=== PATIENT | female | born 1990 | race African-American/Black ===

== ENCOUNTER 2020-11-18 01:20 | Inpatient (IN) | payer OTHER ==
[2020-11-18 03:04] LABS: BASO % 0.4 % (0-2.0); EOS % 0.1 % (0-4.5); HEMATOCRIT 43.5 % (32.4-45.2); LYMPH % 11.1 % (8-40); MCH 31.3 pg (25.7-33.7); MCHC 34.5 g/dl (32.0-36.0); MEAN CELL VOLUME 90.7 fl (80-96); MEAN PLT VOLUME 10.9 fl (7.5-11.1); MONO % 5.7 % (3.8-10.2); NEUT % 82.7 % (42.8-82.8); PLATELET COUNT 185 K/MM3 (134-434); RDW 13.2 % (11.6-15.6)
[2020-11-18 03:14] LABS: INR 0.85 (0.83-1.09); PROTHROMBIN TIME (PATIENT) 10.3 SEC (9.7-13.0)
[2020-11-18 03:17] VITALS: BMI 31.9
[2020-11-18 03:17] LABS: ACTIVATED PTT 26.1 SECONDS (25.2-36.5)
[2020-11-18] MEDS ORDERED: FENTANYL/BUPIVACAINE/NS/PF - PCEA - 50 ML DISP.SYRIN EP ONE (03:21)
[2020-11-18] MEDS ORDERED: PCA PUMP NR ONE (03:21)
[2020-11-18 03:23] LABS: BLOOD UREA NITROGEN 6.7 mg/dL (7-18); CALCIUM 9.1 mg/dL (8.5-10.1)
[2020-11-18 03:26] LABS: CREATININE 0.5 mg/dL (0.55-1.3)
[2020-11-18] MEDS ORDERED: NALOXONE HCL 0.4 MG/ML VIAL IVPUSH PRN (03:37)
[2020-11-18] MEDS ORDERED: BUPIVACAINE HCL/PF 0.25% (2.5MG/ML) 10 ML VIAL ONE (03:40)
[2020-11-18] MEDS ORDERED: FENTANYL/BUPIVACAINE/NS/PF - PCEA - 50 ML DISP.SYRIN EP SCH (03:45)
[2020-11-18] MEDS ORDERED: OXYTOCIN 30 UNITS in 0.9% NS 30 UNIT/500 ML INFUS.BAG IVPB SCH (04:00)
[2020-11-18] MEDS ORDERED: ELECTROLYTE-148 SOLN 1,000 ML IV SCH (04:00)
[2020-11-18] MEDS ORDERED: OXYTOCIN 30 UNITS in 0.9% NS 30 UNIT/500 ML INFUS.BAG IVPB ONE (04:57)
[2020-11-18] MEDS ORDERED: OXYTOCIN 20 UNITS in 0.9% NS 20 UNIT/1,000 ML INFUS.BAG IV ONE ×2 (05:38→09:01)
[2020-11-18] MEDS ORDERED: METHYLERGONOVINE MALEATE 0.2 MG/1 ML AMP IM PRN (07:17)
[2020-11-18] MEDS ORDERED: BENZOCAINE 28 GM HEMORRHOIDAL OINTMENT TP PRN (07:17)
[2020-11-18] MEDS ORDERED: BENZOCAINE 20% 57 GM BOTTLE TP PRN (07:17)
[2020-11-18] MEDS ORDERED: WITCH HAZEL 50% (TUCKS) 40 PAD/JAR PAD TP PRN (07:17)
[2020-11-18] MEDS ORDERED: BISACODYL 10 MG SUPP.RECT RC PRN (07:17)
[2020-11-18] MEDS ORDERED: OXYTOCIN 20 UNITS in 0.9% NS 20 UNIT/1,000 ML INFUS.BAG IV SCH (07:30)
[2020-11-18] MEDS: ACETAMINOPHEN 325 MG TABLET (FP) PO PRN (09:39)
[2020-11-18] MEDS: IBUPROFEN 600 MG TABLET (FP) PO PRN (09:41)
[2020-11-19 08:58] LABS: BASO % 0.3 % (0-2.0); EOS % 0.4 % (0-4.5); HEMATOCRIT 36.9 % (32.4-45.2); HEMOGLOBIN 12.8 GM/dL (10.7-15.3); LYMPH % 16.4 % (8-40); MCHC 34.5 g/dl (32.0-36.0); MEAN CELL VOLUME 89.8 fl (80-96); MEAN PLT VOLUME 11.2 fl (7.5-11.1); MONO % 6.9 % (3.8-10.2); PLATELET COUNT 153 K/MM3 (134-434); RBC 4.11 M/mm3 (3.60-5.2); RDW 13.1 % (11.6-15.6); WHITE BLOOD COUNT 17.7 K/mm3 (4.0-10.0)
[2020-11-19] MEDS: ACETAMINOPHEN 325 MG TABLET (FP) PO PRN (16:13)
[2020-11-19] MEDS: IBUPROFEN 600 MG TABLET (FP) PO PRN (16:13)
[2020-11-19] MEDS: SENNOSIDES/DOCUSATE COMBO (SENNA PLUS) TABLET (UD) PO PRN (21:46)
[2020-11-20] MEDS: IBUPROFEN 600 MG TABLET (FP) PO PRN ×2 (00:57→07:49)
[2020-11-20] MEDS: ACETAMINOPHEN 325 MG TABLET (FP) PO PRN ×2 (00:58→07:50)
[2020-11-20] MEDS: SENNOSIDES/DOCUSATE COMBO (SENNA PLUS) TABLET (UD) PO PRN (07:51)
[2020-11-20 10:13] VITALS: BP 137/92; PULSE 71; TEMP 98.5
== END 2020-11-20 12:15 | disposition home or self-care (01) | DRG 807 ==
LOC: JDEL 01:20 → JLDR 02:20 → J3W 09:20
PROVIDERS: ADMIT Specialist; ATTEND Specialist
PROC: 10E0XZZ Delivery of Products of Conception, External Approach (ICD-10-PCS; principal; 2020-11-18)
DX: O80 Encounter for full-term uncomplicated delivery (principal); Z37.0 Single live birth; Z3A.39 39 weeks gestation of pregnancy
CPT/HCPCS: 36415; 59409; 80048; 85025; 85610; 85730; 86780; 86850; 86900; 86901; C9803; U0003; U0005